=== PATIENT | male | born 1965 | race Caucasian/White ===

== ENCOUNTER → 2017-06-22 | Outpatient (CLI) | payer MEDICAID ==
[2017-06-22 18:42] LABS: LYMPH # 2.5 K/mm3 (0.7-4.5); LYMPH % 30.7 % (10-50)
[2017-06-22 20:51] LABS: BUN 15 mg/dL (7-18)
[2017-06-22 20:59] LABS: GFR (ESTIMATED) 89 ML/MIN (>60)
[2017-06-24 09:37] LABS: Microalbumin, Urine 11.9 ug/mL (Not Estab.)
== END ==
LOC: LAB 18:17
PROVIDERS: Nurse Practitioner Family
DX: R73.9 Hyperglycemia, unspecified (principal); Z00.00 Encounter for general adult medical examination without abnormal findings